=== PATIENT | male | born 1970 | race Caucasian/White ===

== ENCOUNTER 2020-05-02 11:57 | Emergency (ER) | payer BC ==
[~2020-05-02] VITALS: Ht 182.9 cm; Wt 115.0 kg
[2020-05-02] MEDS ORDERED: LIDOCAINE W/EPINEPHRINE 1% 20ML VIAL As Ordered ONE ×2 (12:08→12:09)
--- NOTE | 2020-05-02 12:11 | ED PDOC ---
Post-Departure Follow-Up pt seen by dr landon for laceration repair. 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
[2020-05-02] MEDS ORDERED: LIDOCAINE W/EPINEPHRINE 1% 20ML VIAL SC ONE (12:30)
[2020-05-02] MEDS ORDERED: CEPH500C PO (13:06)
[2020-05-02 13:42] VITALS: BP 143/88
--- NOTE | 2020-05-02 13:47 | HPE ---
HISTORY AND PHYSICAL DATE OF ADMISSION: 05/02/2020 CHIEF COMPLAINT: Laceration to the right posterior thigh while ice fishing with a new ice auger. HISTORY OF PRESENT ILLNESS: The patient is a 49-year-old male. He was fishing up in [place], threw an ice auger over the top of his shoulder to walk through the deep snow. His glove got stuck on a trigger, turning it on. The auger cut into his snow pants and then into his posterior thigh. The family was able to wrap it up, brought him into the [place] [facility], where they evaluated him, did an x-ray to make sure that it was not anywhere near a bone and then they transferred him down here because they were not comfortable suturing it there. The patient's pain is controlled at this time. He is tender. Has a dressing in place. There is no obvious bleeding, but there is some definite oozing in the wound. The wound measures about 14 cm length, about 3-4 cm in depth. I told him at this time we can definitely repair this for him right here in the Emergency Room. There is no need to take him to the Operating Room for this. He was agreeable with that and we signed consent and completed the procedure right in the Emergency Room. PAST MEDICAL HISTORY: The patient's past medical history is significant for: 1. Hypertension. 2. Hyperlipidemia. PAST SURGICAL HISTORY: None. ALLERGIES: None. HOME MEDICATIONS: Please see med rec. SOCIAL HISTORY: Denies drug, alcohol or tobacco abuse. FAMILY HISTORY: Noncontributory. REVIEW OF SYSTEMS: Pertinent positives and negatives as stated in the HPI. PHYSICAL EXAMINATION: GENERAL APPEARANCE: Alert and oriented x3, in no acute distress. VITAL SIGNS: Stable. Afebrile. HEENT: Pupils are equal, round and reactive to light and accommodation. HEART: S1, S2, regular rate and rhythm. LUNGS: Clear to auscultation bilaterally. ABDOMEN: Soft, nontender, nondistended. EXTREMITIES: On the right posterior lateral thigh there is a 14 cm laceration, nice, clean, straight line, extending through the fascia and into the muscle. No arterial bleeding, but there is some oozing around the edges of the wound. LABORATORY STUDIES: None obtained here. IMAGING: X-rays reviewed from [facility] no signs of any orthopedic injuries. ASSESSMENT AND PLAN: The patient again is a 49-year-old male who underwent a laceration secondary to a traumatic injury with an ice auger. Recommendation was to proceed with multiple layered laceration repair and a washout of the wound right in the Emergency Room. He understood and agreed to the procedure, and I was able to complete the procedure at the bedside. Please see the Operative Note for that procedure. 1. The patient is now being discharged home. 2. He will go home with 7 days of Keflex. 3. Follow up with me in the office in 2 weeks to get the sutures out. 4. All of his questions were answered and he will call my office if he has any other questions in the meantime.
--- NOTE | 2020-05-03 09:21 | RO ---
OPERATIVE NOTE DATE OF OPERATION: 05/02/2020 PREOPERATIVE DIAGNOSIS: Right posterior thigh laceration. POSTOPERATIVE DIAGNOSIS: Right posterior thigh laceration. PROCEDURE: Right thigh washout with a layered closure. SURGEON: Garrick Raza DO MANAGER REGIONAL: None ANESTHESIA: 20 mL of 1% Xylocaine with Epinephrine. COMPLICATIONS: None. INDICATIONS FOR PROCEDURE: The patient is a 39-year-old male who presented with a laceration of the right posterior thigh secondary to an injury with an ice auger. He was transferred down from [facility] for ut to evaluate and repair. On exam, he did have a deep laceration through the skin, fascia and group home through the muscle. Recommendation was to proceed with repair right in the emergency room. Risks and benefits of the procedure not limited to but including bleeding, infection, damage to surrounding structures, need for further surgery were discussed in detail to the patient. Informed consent was obtained and the procedure was planned. DESCRIPTION OF PROCEDURE: The patient's right thigh was sterilely prepped and draped in the emergency room with Betadine. Next, the local was injected in the skin and subcutaneous tissue surrounding the perimeter of the wound. The wound measured a total of 14 cm in length and about 4 cm in depth. Once the local was injected, there was a bleeding superficial vessel in the proximal side of the wound. I was able to suture that closed with an interrupted 3-0 Vicryl suture. Once the bleeding was all controlled, the fascial layer was closed with interrupted 3-0 Vicryl sutures. The subcutaneous tissues were then brought together with another layer of 4-0 Vicryl subcuticular sutures and then the skin was brought together with a layer of interrupted 2-0 nylon sutures. Once this was all completed, the wound was cleaned. Gauze, Kerlix dressing were applied on top, thus ending the procedure. The patient tolerated the procedure well, was able to get up and move around afterwards and is being discharged from the emergency room with antibiotics. He will follow up with me in the office in two weeks for suture removal.
== END 2020-05-02 13:44 | disposition home or self-care (01) ==
LOC: EDBD 11:57 → M ED 11:57
DX: S71.111A Laceration without foreign body, right thigh, initial encounter (principal); W26.8XXA Contact with other sharp object(s), not elsewhere classified, initial encounter; Y92.89 Other specified places as the place of occurrence of the external cause; Y93.89 Activity, other specified; Y99.9 Unspecified external cause status; I10 Essential (primary) hypertension; E78.5 Hyperlipidemia, unspecified